=== PATIENT | male | born 1995 | race Asian ===

== ENCOUNTER 2018-01-24 13:03 | Emergency (ER) | payer OTHER ==
[~2018-01-24] VITALS: Ht 177.8 cm; Wt 70.3 kg
[2018-01-24 13:26] VITALS: BP 138/90; Ht 177.8 cm; Wt 70.3 kg
== END 2018-01-24 14:50 | disposition home or self-care (01) ==
LOC: ED 13:03
DX: S30.811A Abrasion of abdominal wall, initial encounter (principal); W54.0XXA Bitten by dog, initial encounter; Y92.9 Unspecified place or not applicable